=== PATIENT | female | born 1970 | race Caucasian/White ===

== ENCOUNTER 2024-05-26 08:46 | Outpatient (CLI) | payer BC, SELFPAY ==
[2024-05-26 09:52] LABS: Free T4 Free Thyroxine 1.47 ng/dL (0.82-1.77); Thyroid Stimulating Hormone 0.53 uIU/mL (0.27-4.20)
[2024-05-27 09:55] LABS: T3 Total 100 ng/dL (76-181)
== END 2024-05-26 08:47 | disposition home or self-care (01) ==
LOC: LAB 08:49
PROVIDERS: PCP Nurse Practitioner Family; Visit Provider Internal Medicine
DX: E06.3 Autoimmune thyroiditis (principal); R63.5 Abnormal weight gain
CPT/HCPCS: 36415; 83516; 84439; 84443; 84480

== ENCOUNTER 2024-11-14 10:01 | Outpatient (CLI) | payer BC, SELFPAY ==
[2024-11-14 13:17] LABS: Free T4 Free Thyroxine 1.36 ng/dL (0.82-1.77); Thyroid Stimulating Hormone 0.68 uIU/mL (0.27-4.20)
== END 2024-11-14 10:02 | disposition home or self-care (01) ==
PROVIDERS: PCP Nurse Practitioner Family; Visit Provider Internal Medicine
DX: E06.3 Autoimmune thyroiditis (principal); R63.5 Abnormal weight gain
CPT/HCPCS: 36415; 84439; 84443